=== PATIENT | female | born 1955 | race Caucasian/White ===

== ENCOUNTER 2018-10-11 18:05 | Emergency (ER) | payer OTHER ==
[~2018-10-11] VITALS: Ht 170.2 cm; Wt 91.0 kg
[2018-10-11] MEDS ORDERED: ACETAMINOPHEN 325MG TABLET PO STA (18:28)
[2018-10-11] MEDS ORDERED: VANCOMYCIN 1 G PREMIX 200 ML IV ONE (18:30)
[2018-10-11] MEDS ORDERED: PIPERACILLIN/TAZ 3.375G PREMIX 50 ML IV ONE (18:30)
[2018-10-11] MEDS ORDERED: SODIUM CHLORIDE 0.9% 1000ML BAG (SEPSIS BOLUS) IV ONE (18:30)
[2018-10-11 19:22] LABS: HEMATOCRIT. 41.2 % (36.0-48.0); HEMOGLOBIN. 13.8 g/dL (12.0-16.0); MEAN CORPUSCULAR HEMOGLOBIN 31.5 pg (28.0-32.0); MEAN CORPUSCULAR VOLUME 94.2 fL (81.0-99.0); MEAN PLATELET VOLUME 8.5 fl (7.4-10.4); PLATELET 191 x1000/uL (130-400); RED BLOOD CELL COUNT 4.37 mill/uL (4.2-5.4); RED CELL DISTRIBUTION WIDTH 13.6 % (11.6-14.6)
[2018-10-11 19:28] LABS: CHLORIDE 106 mEq/L (98-107)
[2018-10-11 19:31] LABS: CLARITY URINE TURBID (CLEAR); COLOR URINE YELLOW (YELLOW); KETONES URINE NEGATIVE (NEGATIVE); LEUKOCYTE ESTERASE URINE 3+ (NEGATIVE); NITRITE URINE POSITIVE (NEGATIVE); OCCULT BLOOD URINE 2+ (NEGATIVE); PH URINE 5.5 (4.5-8.0); PROTEIN URINE 1+ (NEGATIVE); SPECIFIC GRAVITY URINE 1.017 (1.005-1.030)
[2018-10-11 19:44] LABS: PLATELET ESTIMATE NORMAL
[2018-10-11] MEDS ORDERED: POTASSIUM CHLORIDE 20MEQ TABLET SR PO ONE (19:45)
[2018-10-11 19:46] LABS: INR 1.2; PROTHROMBIN TIME 12.2 sec (9.1-11.1)
[2018-10-12 01:09] VITALS: BP 116/60
[2018-10-12] MEDS ORDERED: ACETAMINOPHEN 325MG TABLET PO ONE (01:15)
== END 2018-10-12 01:34 | disposition short-term general hospital (02) ==
LOC: ER 18:05
DX: A41.9 Sepsis, unspecified organism (principal); N30.00 Acute cystitis without hematuria; E87.6 Hypokalemia; E11.9 Type 2 diabetes mellitus without complications; I10 Essential (primary) hypertension
CPT/HCPCS: 36415; 71045; 80053; 81003; 82962; 83605; 84484; 85025; 85610; 87040; 87077; 87086; 87186; 93005; 96365; 96366; 96368; 99291; J2543; J3370; J7030; Z7610